=== PATIENT | female | born 1945 | race Caucasian/White ===

== ENCOUNTER 2017-11-30 01:38 | Emergency (ER) | payer MEDICARE, BC ==
--- NOTE | 2017-11-30 02:05 | Emergency Department Record ---
History of Present Illness - General Chief Complaint: Dizziness Stated Complaint: LIGHTHEADED Time Seen by Provider: 11/30/17 02:00 Source: Patient Mode of Arrival: Ambulatory Limitations: No limitations - History of Present Illness Initial Comments: 72 yo female presents to ED for evaluation of feeling flushed, light headed, and not feeling like herself for the past 3 days. Patient reports that she just stopped prednisone 3 days ago following treatment for gout. Patient believes that her symptoms may be related to recent steroid use. Patient denies fevers, chills, cough, abdominal pain, or recent illness. Patient denies chest pain or difficulty breathing. Patient also denies focal weakness on examination. MD Complaint: Lightheadedness Onset/Timin -: Days(s) Description: Lightheadedness History of Same: No Severity: Mild Improves With: Nothing Worsens With: Nothing Associated Symptoms: Denies other symptoms - [place] Coma Scale Eye Response: (4) Open spontaneously Motor Response: (6) Obeys commands Verbal Response: (5) Oriented [place] Total: 15 - Related Data Home Medications Medication Instructions Recorded Confirmed Last Taken Bisoprol/Hydrochlorothiazide 1 tab PO DAILY 11/30/17 11/30/17 Unknown [Bisoprolol-Hctz 2.5-6.25 mg Tb] Febuxostat [Uloric] 40 mg PO DAILY 11/30/17 11/30/17 Unknown Levothyroxine Sodium [Synthroid] 75 mcg PO DAILY 11/30/17 11/30/17 Unknown Allergies Allergy/AdvReac Type Severity Reaction Status Date / Time aspirin [From Norgesic] Allergy RASH Verified 11/30/17 01:39 caffeine [From Norgesic] Allergy RASH Verified 11/30/17 01:39 carisoprodol [From Soma] Allergy RASH Verified 11/30/17 01:39 orphenadrine [From Norgesic] Allergy RASH Verified 11/30/17 01:39 Sulfa (Sulfonamide Allergy RASH Verified 11/30/17 01:39 Antibiotics) Travel Screening - Travel/Exposure Within Last 30 Days Have you traveled within the last 30 days?: No Review of Systems Constitutional: Denies: Chills, Fever, Malaise, Night sweats Eyes: Denies: Eye discharge, Eye pain ENT: Denies: Congestion, Ear pain, Epistaxis Respiratory: Denies: Cough, Dyspnea Cardiovascular: Denies: Chest pain, Dyspnea on exertion Endocrine: Denies: Fatigue, Heat or cold intolerance Gastrointestinal: Denies: Abdominal pain, Nausea, Vomiting Genitourinary: Denies: Incontinence, Retention Musculoskeletal: Denies: Arthralgia, Back pain Skin: Denies: Bruising, Change in color Neurological: Reports: Other (lightheaded). Denies: Abnormal gait, Confusion, Headache, Seizure Psychiatric: Denies: Anxiety Hematological/Lymphatic: Denies: Anemia, Blood Clots Past Medical History - SOCIAL HISTORY Smoking Status: Never smoker Alcohol Use: Occasional Drug Use: None - RESPIRATORY Hx Respiratory Disorders: No - CARDIOVASCULAR Hx Cardio Disorders: Yes Hx Hypertension: Yes - GI Hx GI Disorders: No Hx Reflux: Yes - Hx Genitourinary Disorders: No - ENDOCRINE Hx Endocrine Disorders: Yes Hx Thyroid Disease: Yes (hypo) - MUSCULOSKELETAL Hx Musculoskeletal Disorders: No - PSYCH Hx Psych Problems: No - HEMATOLOGY/ONCOLOGY Hx Hematology/Oncology Disorders: No Family Medical History Any Significant Family History?: Yes Hx Cancer: Brother/Sister, Grandparents Hx Diabetes: Mother Hx Heart Disease: Father, Mother Physical Exam - General General Appearance: Alert, Oriented x3, Cooperative, No acute distress, Other ( conversational, well appearing on examination.) Limitations: No limitations - Head Head exam: Atraumatic, Normocephalic, Normal inspection Head exam detail: negative: Abrasion, Contusion, Garibay's sign, General tenderness, Hematoma, Laceration - Eye Eye exam: Normal appearance. negative: Conjunctival injection, Periorbital swelling, Periorbital tenderness, Scleral icterus - ENT Ear exam: negative: Auricular hematoma, Auricular trauma Nasal Exam: negative: Active bleeding, Discharge, Dried blood, Foreign body Mouth exam: negative: Drooling, Laceration, Muffled voice, Tongue elevation - Neck Neck exam: Normal inspection. negative: Meningismus, Tenderness - Respiratory Respiratory exam: Normal lung sounds bilaterally. negative: Rales, Respiratory distress, Rhonchi, Stridor - Cardiovascular Cardiovascular Exam: Regular rate, Normal rhythm, Normal heart sounds - GI/Abdominal GI/Abdominal exam: Soft. negative: Rebound, Rigid, Tenderness - Rectal Rectal exam: Deferred - exam: Deferred - Extremities Extremities exam: Normal inspection. negative: Calf tenderness, Pedal edema, Tenderness - Back Back exam: Denies: CVA tenderness (R), CVA tenderness (L) - Neurological Neurological exam: Alert, Normal gait, Oriented X3, Other (Steady gait with no ataxia present). negative: Motor sensory deficit - Psychiatric Psychiatric exam: Normal affect, Normal mood - Skin Skin exam: Normal color. negative: Abrasion Type of lesion: negative: abrasion Course Vital Signs 11/30/17 01:52 Temperature 97.8 F Pulse Rate [ 74 Pulse Ox Probe] Respiratory 18 Rate Blood Pressure 177/83 [Left Arm] Pulse Ox 100 - Reevaluation(s) Reevaluation #1: 11/30/17 02:09 EKG: NSR with PVCs Normal axis, mild IVCD nonspecific ST-T wave changes are present. Reevaluation #2: 11/30/17 03:14 Labs reviewed and are grossly unremarkable for an acute process. Patient has no clinical evidence for cerebellar CVA or dysfunction (normal gait without ataxia) Patient reassessed and reports some improvement in her symptoms and appears to be resting comfortably. Patient appears stable for discharge at this time with return for any worsening of her symptoms. Medical Decision Making - Lab Data Result diagrams: 11/30/17 02:17 11/30/17 02:21 Disposition Disposition: Discharge Clinical Impression: Lightheadedness Disposition: Home, Self-Care Condition: (2) Stable Instructions: Lightheadedness (ED) Additional Instructions: Return to ED if your symptoms worsen or if you have any concerns. Drink plenty of fluids/rest. Follow-up with your family doctor in 3-5 days as directed. Forms: Patient Portal Access Time of Disposition: 03:22 Quality - Quality Measures Quality Measures: N/A - Blood Pressure Screening Does Patient Have Any of the Following: Active Dx of HTN Blood Pressure Classification: Hypertensive Reading Systolic Measurement: 156 Diastolic Measurement: 60 Screening for High Blood Pressure: Patient Exclusion, Hx of HTN [[id number]]
[2017-11-30 02:30] LABS: BASO % 0.1 % (0-6); EOS % 1.3 % (0-6); GRAN % 64.1 % (47-80); HEMATOCRIT 43.1 % (35.0-47.0); HEMOGLOBIN 14.8 gm/dl (11.6-16.0); LYMPH % 23.1 % (16-45); MEAN CELL VOLUME 95.6 fl (81-97); MEAN CORPUSCULAR HEMOGLOBIN 32.8 pg (27-33); MEAN CORPUSCULAR HGB CONC 34.3 g/dl (32-36); MEAN PLATELET VOLUME 10.5 fl (7.4-10.4); MONO % 11.4 % (0-9); PLATELET COUNT 301 K/uL (130-400); RED BLOOD COUNT 4.51 M/uL (3.80-5.40); RED CELL DISTRIBUTION WIDTH 13.5 % (11.5-14.5); WHITE BLOOD COUNT W/O DIFF 8.7 K/uL (4.2-12.2)
[2017-11-30 03:09] LABS: ALBUMIN 3.8 g/dL (4.0-5.0); ALKALINE PHOSPHATASE 68 U/L (35-104); ALT/SGPT 19 U/L (<33); AST/SGOT 19 U/L (10.0-35.0); BLOOD UREA NITROGEN 23 mg/dL (8-23)
[2017-11-30 03:10] LABS: ALB/GLOB RATIO 1.3 (1.1-1.8); CREATININE 0.8 mg/dL (0.5-0.9); EST GLOMERULAR FILTRATION RATE > 60 mL/min; GLUCOSE,RANDOM 105 mg/dL (74-109); TOTAL PROTEIN 6.7 g/dL (6.6-8.7)
[2017-11-30 03:11] LABS: URINE APPEARANCE CLEAR; URINE BILIRUBIN NEGATIVE (NEGATIVE); URINE BLOOD NEGATIVE (NEGATIVE); URINE COLOR YELLOW; URINE GLUCOSE (UA) NEGATIVE (NEGATIVE); URINE KETONE NEGATIVE (NEGATIVE); URINE LEUKOCYTE ESTERASE NEGATIVE (NEGATIVE); URINE NITRITE NEGATIVE (NEGATIVE); URINE PROTEIN NEGATIVE (NEGATIVE); URINE UROBILINOGEN 0.2 E.U./dL (0.20 - 1.00)
== END 2017-11-30 03:38 | disposition home or self-care (01) ==
LOC: ER 01:38
DX: R42 Dizziness and giddiness (principal); I10 Essential (primary) hypertension
CPT/HCPCS: 80053; 81003; 85025; 93005; 93010; 99284

== ENCOUNTER 2019-04-19 06:49 | Day surgery (SDC) | payer MEDICARE, BC ==
[2019-04-19] MEDS ORDERED: LIDOCAINE 2% MDV (20MG/ML) 20ML VIAL IV ONE (06:50)
[2019-04-19] MEDS ORDERED: PROPOFOL 10 MG/ML VIAL IV ONE (06:50)
--- NOTE | 2019-04-20 07:30 | Operative Note ---
OPERATION: COLONOSCOPY with cold forceps polypectomy. PREOPERATIVE DIAGNOSIS: History of polyps. POSTOPERATIVE DIAGNOSIS: Moderate sigmoid diverticulosis and ascending colon polyp. PREPARATION QUALITY: Excellent. ESTIMATED BLOOD LOSS: Minimum. SPECIMENS: Ascending colon polyp. PROCEDURE: After informed consent was obtained from the patient, she was placed in the left lateral decubitus position in the endoscopy suite, sedated and monitored by the department of anesthesia. Digital rectal exam was unremarkable. A well-lubricated [id number] colonoscope was inserted into the rectum and advanced to the cecum. The cecum and cecal bulb were unremarkable. The ileocecal valve and appendiceal orifice were unremarkable. The ascending colon revealed a diminutive polyp which was removed with a cold forceps. Minimal bleeding was noted. The remainder of the ascending colon, transverse colon, and descending colon were unrevealing. The sigmoid colon demonstrated moderate diverticular changes. The rectum was unremarkable in forward and J-turn views. The endoscope was straightened, the rectal ampulla deflated, and the endoscope was removed. RECOMMENDATIONS: I would suggest the patient follow a high-fiber diet. She will require repeat exam in 5 years or sooner should symptoms warrant. As always, thank you for allowing me to participate in the healthcare of your patients. AMADOR
== END 2019-04-19 08:50 | disposition home or self-care (01) ==
LOC: HOP 06:49
PROVIDERS: ATTEND Internal Medicine Gastroenterology
DX: Z12.11 Encounter for screening for malignant neoplasm of colon (principal); Z86.010 Personal history of colon polyps; D12.2 Benign neoplasm of ascending colon; K57.30 Diverticulosis of large intestine without perforation or abscess without bleeding; I10 Essential (primary) hypertension; E78.00 Pure hypercholesterolemia, unspecified; M10.9 Gout, unspecified